=== PATIENT | female | born 1975 | race Caucasian/White ===

== ENCOUNTER 2016-10-16 17:30 | Inpatient (IN) | payer BC ==
[~2016-10-16] VITALS: Ht 167.6 cm; Wt 136.5 kg
[~2016-10-16 17:30] MED LIST: BACTRIM,SEPT1 TABLET PO; Cipro PO; ENDOCET 5-3251 EACH PO; INDOCIN25 MG PO; LIDOCAINE20 MG/1 M5 PO; NAPROSYN500 MG PO; NOHOMEMEDS; NORCO 5/3251 TABLET PO; PEN-VEE K,VEET500 MG PO; PERCOCET 5/31 TABLET PO; PROAIR HFA8.5 GM IH; TESSALON PERLE100 MG PO; TESSALON200 MG PO; VENTOLIN HFA18 GM IH; ZITHROMAX Z-PA250 MG PO
[2016-10-16 18:02] LABS: ADD MIUA? YES; BILIRUBIN NEGATIVE; BLOOD SMALL; COLOR AMBER ((YELLOW)); GLUCOSE (STRIP) NEGATIVE; KETONES NEGATIVE; LEUKOCYTES MODERATE; NITRITE NEGATIVE; PROTEIN (STRIP) 100; SPECIFIC GRAVITY 1.024 (1.000-1.030); UROBILINOGEN 0.2 MG/DL (0.2-1.0)
[2016-10-16 18:11] LABS: HEMATOCRIT 36.2 % (36.0-46.0); MCH 26.3 PG (29.0-34.0); MCHC 31.8 G/DL (30.0-36.0); MCV 82.6 FL (83-99); MEAN PLAT.VOLUME 8.4 uM^3 (9.5-12.4); PLATELET COUNT 404 K/uL (156-360); RBC DIS.WIDTH-SD 42.1 % (39-53); RED BLOOD COUNT 4.38 M/uL (3.80-5.20); WHITE BLOOD COUNT 6.9 K/uL (4.1-10.2)
[2016-10-16 18:21] LABS: CHLORIDE 105 mEq/L (99-109); SODIUM 139 mEq/L (136-147)
[2016-10-16 18:22] LABS: UCUL ADDED? YES; WHITE BLOOD CELLS TNTC /HPF (0-5)
[2016-10-16 18:23] LABS: GLUCOSE 116 mg/dL (70-99)
[2016-10-16 18:24] LABS: ANION GAP 8 MEQ/L (2-14)
[2016-10-16 18:27] LABS: GFR ESTIMATE (CALCULATED) > 59 mL/min/
[2016-10-16 18:28] LABS: UREA NITROGEN (BUN) 11 mg/dL (9-23)
[2016-10-16 18:35] LABS: QUANTITATIVE HCG < 4.0 MIU/ML
[2016-10-16 18:43] LABS: EOSINOPHIL (%) 3.5 % (0-5); EOSINOPHIL COUNT 0.2 K/uL (0-0.3); IMMATURE GRANULOCYTE (%) 0.3 % (0.0-0.7); INSTRUMENT ABS NEUTROPHIL CT 2.8 K/uL; LYMPHOCYTE COUNT 3.1 K/uL (1.0-2.8); MONOCYTE (%) 9.4 % (3-12); MONOCYTE COUNT 0.6 K/uL (0-0.8); NEUTROPHIL (%) 40.5 % (45-76); NEUTROPHIL COUNT 2.8 K/uL (1.8-6.4)
[2016-10-16 18:48] LABS: TOTAL BILIRUBIN 0.3 mg/dL (0.0-1.0)
[2016-10-16 18:49] LABS: ALKALINE PHOSPHATASE 80 IU/L (3-129)
[2016-10-16 18:52] LABS: DIRECT BILIRUBIN 0.1 mg/dL (0.0-0.3)
[2016-10-16 18:53] LABS: LIPASE 27 U/L (1.0-51.0)
[2016-10-16 22:47] VITALS: BP 125/78
[2016-10-17 03:37] VITALS: BP 113/67
[2016-10-17 05:49] LABS: EOSINOPHIL (%) 3.5 % (0-5); EOSINOPHIL COUNT 0.2 K/uL (0-0.3); HEMATOCRIT 32.5 % (36.0-46.0); IMMATURE GRANULOCYTE (%) 0.3 % (0.0-0.7); INSTRUMENT ABS NEUTROPHIL CT 3.3 K/uL; LYMPHOCYTE COUNT 2.4 K/uL (1.0-2.8); MCH 26.4 PG (29.0-34.0); MCHC 31.7 G/DL (30.0-36.0); MCV 83.3 FL (83-99); MEAN PLAT.VOLUME 8.6 uM^3 (9.5-12.4); MONOCYTE (%) 9.7 % (3-12); MONOCYTE COUNT 0.6 K/uL (0-0.8); NEUTROPHIL (%) 49.2 % (45-76); NEUTROPHIL COUNT 3.3 K/uL (1.8-6.4); PLATELET COUNT 345 K/uL (156-360); RBC DIS.WIDTH-CV 14.1 % (11.8-14.6); RBC DIS.WIDTH-SD 42.5 % (39-53); WHITE BLOOD COUNT 6.6 K/uL (4.1-10.2)
[2016-10-17 06:13] LABS: ANION GAP 6 MEQ/L (2-14); CHLORIDE 107 MEQ/L (99-109); GFR ESTIMATE (CALCULATED) > 59 mL/min/; GLUCOSE 115 mg/dL (70-99); POTASSIUM 4.1 MEQ/L (3.7-5.4); SAMPLE HEMOLYSIS CHECK 0; SAMPLE ICTERIC CHECK 0; SAMPLE LIPEMIA CHECK 0; SODIUM 138 MEQ/L (136-147); UREA NITROGEN (BUN) 11 mg/dL (9-23)
[2016-10-17 07:05] VITALS: BP 101/59
[2016-10-17 11:59] VITALS: BP 109/58
[2016-10-17 15:10] VITALS: BP 106/59
[2016-10-17 19:49] VITALS: BP 124/63
[2016-10-17 23:54] VITALS: BP 114/55
[2016-10-18 06:26] LABS: EOSINOPHIL (%) 4.4 % (0-5); EOSINOPHIL COUNT 0.3 K/uL (0-0.3); HEMATOCRIT 33.5 % (36.0-46.0); IMMATURE GRANULOCYTE (%) 0.3 % (0.0-0.7); INSTRUMENT ABS NEUTROPHIL CT 3.3 K/uL; LYMPHOCYTE COUNT 2.3 K/uL (1.0-2.8); MCH 26.4 PG (29.0-34.0); MCHC 31.6 G/DL (30.0-36.0); MCV 83.3 FL (83-99); MEAN PLAT.VOLUME 8.6 uM^3 (9.5-12.4); MONOCYTE COUNT 0.6 K/uL (0-0.8); NEUTROPHIL (%) 50.5 % (45-76); NEUTROPHIL COUNT 3.3 K/uL (1.8-6.4); PLATELET COUNT 334 K/uL (156-360); RBC DIS.WIDTH-SD 42.5 % (39-53); RED BLOOD COUNT 4.02 M/uL (3.80-5.20); WHITE BLOOD COUNT 6.6 K/uL (4.1-10.2)
[2016-10-18 06:48] LABS: ALKALINE PHOSPHATASE 60 IU/L (3-129); ANION GAP 5 MEQ/L (2-14); CHLORIDE 108 MEQ/L (99-109); GFR ESTIMATE (CALCULATED) > 59 mL/min/; GLUCOSE 122 mg/dL (70-99); POTASSIUM 4.5 MEQ/L (3.7-5.4); SAMPLE HEMOLYSIS CHECK 0; SAMPLE ICTERIC CHECK 0; SAMPLE LIPEMIA CHECK 0; SODIUM 139 MEQ/L (136-147); TOTAL BILIRUBIN 0.4 MG/DL (0.0-1.0); UREA NITROGEN (BUN) 10 mg/dL (9-23)
[2016-10-18 08:27] VITALS: BP 106/58
[2016-10-18] MEDS ORDERED: KEFLEX500 MG PO (08:58)
== END 2016-10-18 11:53 | disposition home or self-care (01) | DRG 690 ==
LOC: RME 17:30 → EME 17:30 → EDOF 21:31 → ENRESERV 21:34 → 2EAST 22:26
PROVIDERS: Hospitalist; Internal Medicine
DX: N12 Tubulo-interstitial nephritis, not specified as acute or chronic (principal); N20.0 Calculus of kidney; E66.01 Morbid (severe) obesity due to excess calories; Z68.42 Body mass index [BMI] 45.0-49.9, adult; Z72.0 Tobacco use; Z87.442 Personal history of urinary calculi; Z98.51 Tubal ligation status
CPT/HCPCS: 74176; 80048; 80053; 80076; 81003; 83690; 84702; 85025; 85027; 87086; 99281; 99284; 99285; J0696; J2405; J3010; J7030; J7050

== ENCOUNTER 2016-11-18 09:48 | Day surgery (SDC) | payer BC ==
[~2016-11-18] VITALS: Ht 167.6 cm; Wt 134.7 kg
[~2016-11-18 09:48] MED LIST changes: +ALEVE220 MG PO; +KEFLEX500 MG PO
[2016-11-18 10:11] VITALS: BP 134/90
[2016-11-18 15:39] VITALS: BP 121/67
[2016-11-18 16:55] VITALS: BP 116/78
[2016-11-19] MEDS ORDERED: CIPRO500 MG PO (20:52)
[2016-11-19] MEDS ORDERED: PERCOCET 5/31 TABLET PO (20:53)
== END 2016-11-18 17:15 | disposition home or self-care (01) ==
LOC: SDC 09:48
DX: N20.0 Calculus of kidney (principal); N13.6 Pyonephrosis
CPT/HCPCS: 74000; 76000; C1758; C1769; C1876; J0330; J0692; J1100; J1170; J2250; J2405; J2710; J2765; J3010; J7050; S0020

== ENCOUNTER 2016-11-19 19:26 | Inpatient (IN) | payer BC ==
[~2016-11-19] VITALS: Ht 167.6 cm; Wt 127.5 kg
[2016-11-19 20:14] LABS: EOSINOPHIL (%) 0.1 % (0-5); HEMATOCRIT 34.4 % (36.0-46.0); IMMATURE GRANULOCYTE (%) 0.4 % (0.0-0.7); IMMATURE GRANULOCYTE COUNT 0.1 K/uL; INSTRUMENT ABS NEUTROPHIL CT 10.8 K/uL; LYMPHOCYTE COUNT 1.2 K/uL (1.0-2.8); MCH 26.8 PG (29.0-34.0); MCHC 33.1 G/DL (30.0-36.0); MCV 80.9 FL (83-99); MEAN PLAT.VOLUME 8.4 uM^3 (9.5-12.4); MONOCYTE (%) 6.6 % (3-12); MONOCYTE COUNT 0.9 K/uL (0-0.8); NEUTROPHIL (%) 83.2 % (45-76); NEUTROPHIL COUNT 10.8 K/uL (1.8-6.4); PLATELET COUNT 323 K/uL (156-360); RBC DIS.WIDTH-CV 13.9 % (11.8-14.6); RBC DIS.WIDTH-SD 40.3 % (39-53); RED BLOOD COUNT 4.25 M/uL (3.80-5.20)
[2016-11-19 20:22] LABS: CHLORIDE 96 mEq/L (99-109)
[2016-11-19 20:24] LABS: GLUCOSE 177 mg/dL (70-99)
[2016-11-19 20:25] LABS: ANION GAP 11 MEQ/L (2-14); POTASSIUM 3.6 mEq/L (3.7-5.4); SODIUM 131 mEq/L (136-147)
[2016-11-19 20:28] LABS: GFR ESTIMATE (CALCULATED) > 59 mL/min/
[2016-11-19 20:29] LABS: UREA NITROGEN (BUN) 8 mg/dL (9-23)
[2016-11-19] MEDS ORDERED: CIPRO500 MG PO (20:52)
[2016-11-19] MEDS ORDERED: PERCOCET 5/31 TABLET PO (20:53)
[2016-11-19 22:24] VITALS: BP 124/71
[2016-11-19 22:30] VITALS: BP 124/71
[2016-11-20 02:44] LABS: ADD MIUA? YES; BILIRUBIN NEGATIVE; BLOOD LARGE; COLOR YELLOW ((YELLOW)); GLUCOSE (STRIP) NEGATIVE; KETONES NEGATIVE; LEUKOCYTES LARGE; NITRITE NEGATIVE; PROTEIN (STRIP) NEGATIVE; UROBILINOGEN 0.2 MG/DL (0.2-1.0)
[2016-11-20 02:50] LABS: BACTERIA RARE /HPF; EPITHELIAL CELLS 1+ /HPF; MUCUS TRACE /LPF; UCUL ADDED? YES; WHITE BLOOD CELLS TNTC /HPF (0-5)
[2016-11-20 06:58] LABS: HEMATOCRIT 33.2 % (36.0-46.0); MCH 27.7 PG (29.0-34.0); MCHC 33.1 G/DL (30.0-36.0); MCV 83.6 FL (83-99); MEAN PLAT.VOLUME 8.9 uM^3 (9.5-12.4); PLATELET COUNT 340 K/uL (156-360); RBC DIS.WIDTH-CV 14.3 % (11.8-14.6); RBC DIS.WIDTH-SD 43.7 % (39-53); RED BLOOD COUNT 3.97 M/uL (3.80-5.20); WHITE BLOOD COUNT 14.2 K/uL (4.1-10.2)
[2016-11-20 07:18] LABS: Estimated Average Glucose 134 mg/dL (70-123); HEMOGLOBIN A1c (GLYCOHEMOGLOB) 6.3 % HGB (Below 5.7)
[2016-11-20 07:25] VITALS: BP 112/63
[2016-11-20 08:05] LABS: FERRITIN 171 NG/ML (10-291)
[2016-11-20 08:19] LABS: ANION GAP 11 MEQ/L (2-14); CHLORIDE 98 MEQ/L (99-109); GFR ESTIMATE (CALCULATED) > 59 mL/min/; GLUCOSE 153 mg/dL (70-99); IRON 9 MCG/DL (35-150); POTASSIUM 3.8 MEQ/L (3.7-5.4); SAMPLE HEMOLYSIS CHECK 0; SAMPLE ICTERIC CHECK 0; SAMPLE LIPEMIA CHECK 0; SODIUM 134 MEQ/L (136-147); UREA NITROGEN (BUN) 7 mg/dL (9-23)
[2016-11-20 15:40] VITALS: BP 125/76
[2016-11-20 23:55] VITALS: BP 148/66
[2016-11-21 07:14] VITALS: BP 118/69
[2016-11-21 10:16] LABS: HEMATOCRIT 32.9 % (36.0-46.0); MCH 27.4 PG (29.0-34.0); MCHC 32.8 G/DL (30.0-36.0); MCV 83.5 FL (83-99); MEAN PLAT.VOLUME 8.7 uM^3 (9.5-12.4); PLATELET COUNT 351 K/uL (156-360); RBC DIS.WIDTH-CV 14.4 % (11.8-14.6); RBC DIS.WIDTH-SD 44.2 % (39-53); RED BLOOD COUNT 3.94 M/uL (3.80-5.20); WHITE BLOOD COUNT 15.4 K/uL (4.1-10.2)
[2016-11-21 10:38] LABS: ANION GAP 10 MEQ/L (2-14); CHLORIDE 100 MEQ/L (99-109); GFR ESTIMATE (CALCULATED) > 59 mL/min/; GLUCOSE 194 mg/dL (70-99); POTASSIUM 3.6 MEQ/L (3.7-5.4); SAMPLE HEMOLYSIS CHECK 0; SAMPLE ICTERIC CHECK 0; SAMPLE LIPEMIA CHECK 0; SODIUM 134 MEQ/L (136-147); UREA NITROGEN (BUN) 7 mg/dL (9-23)
[2016-11-21 15:26] VITALS: BP 126/70
[2016-11-22] VITALS: BP 116/62
[2016-11-22 07:27] VITALS: BP 113/66
[2016-11-22 09:18] LABS: HEMATOCRIT 33.2 % (36.0-46.0); MCH 27.3 PG (29.0-34.0); MCHC 32.2 G/DL (30.0-36.0); MCV 84.7 FL (83-99); MEAN PLAT.VOLUME 9.2 uM^3 (9.5-12.4); PLATELET COUNT 415 K/uL (156-360); RBC DIS.WIDTH-CV 14.6 % (11.8-14.6); RBC DIS.WIDTH-SD 45.1 % (39-53); RED BLOOD COUNT 3.92 M/uL (3.80-5.20); WHITE BLOOD COUNT 14.1 K/uL (4.1-10.2)
[2016-11-22 09:34] LABS: ANION GAP 11 MEQ/L (2-14); CHLORIDE 100 MEQ/L (99-109); GFR ESTIMATE (CALCULATED) > 59 mL/min/; GLUCOSE 149 mg/dL (70-99); POTASSIUM 3.3 MEQ/L (3.7-5.4); SODIUM 133 MEQ/L (136-147); UREA NITROGEN (BUN) 7 mg/dL (9-23)
[2016-11-22 15:08] VITALS: BP 123/63
[2016-11-22 17:14] LABS: INTER. NORMALIZED RATIO 1.4; PROTHROMBIN TIME 15.4 SEC (10.2-12.9)
[2016-11-22 17:16] LABS: PTT 29.5 SEC (25-37)
[2016-11-22 20:30] VITALS: BP 125/71
[2016-11-23 00:23] VITALS: BP 109/58
[2016-11-23 00:31] LABS: POINT-OF-CARE METER ID UU14174225
[2016-11-23 05:35] LABS: POINT-OF-CARE METER ID UU13113717
[2016-11-23 08:28] LABS: POINT-OF-CARE METER ID UU14174225
[2016-11-23 08:50] VITALS: BP 120/60
[2016-11-23 09:08] LABS: HEMATOCRIT 28.6 % (36.0-46.0); MCH 26.7 PG (29.0-34.0); MCHC 32.2 G/DL (30.0-36.0); MCV 82.9 FL (83-99); MEAN PLAT.VOLUME 9.3 uM^3 (9.5-12.4); PLATELET COUNT 390 K/uL (156-360); RBC DIS.WIDTH-CV 14.6 % (11.8-14.6); RBC DIS.WIDTH-SD 44.2 % (39-53); RED BLOOD COUNT 3.45 M/uL (3.80-5.20); WHITE BLOOD COUNT 12.4 K/uL (4.1-10.2)
[2016-11-23 09:53] LABS: ANION GAP 11 MEQ/L (2-14); CHLORIDE 103 MEQ/L (99-109); GFR ESTIMATE (CALCULATED) > 59 mL/min/; GLUCOSE 132 mg/dL (70-99); POTASSIUM 3.5 MEQ/L (3.7-5.4); SAMPLE HEMOLYSIS CHECK 0; SAMPLE ICTERIC CHECK 0; SAMPLE LIPEMIA CHECK 0; SODIUM 134 MEQ/L (136-147); UREA NITROGEN (BUN) 8 mg/dL (9-23)
[2016-11-23 12:10] LABS: POINT-OF-CARE METER ID UU13113717
[2016-11-23 15:10] VITALS: BP 116/57
[2016-11-23 15:26] LABS: POINT-OF-CARE METER ID UU14174225
[2016-11-23 16:32] VITALS: BP 131/69
[2016-11-23 21:06] VITALS: BP 123/65
[2016-11-23 21:50] LABS: POINT-OF-CARE METER ID UU13113717
[2016-11-23 23:37] LABS: TROP-I INTERPRETATION NEGATIVE; TROPONIN-I 0.01 ng/mL (0.0-0.30)
[2016-11-23 23:53] VITALS: BP 114/62
[2016-11-24 05:59] LABS: RED BLOOD COUNT 3.54 M/uL (3.80-5.20); WHITE BLOOD COUNT 15.9 K/uL (4.1-10.2)
[2016-11-24 06:00] LABS: HEMATOCRIT 29.4 % (36.0-46.0); MCH 26.3 PG (29.0-34.0); MCHC 31.6 G/DL (30.0-36.0); MCV 83.1 FL (83-99); MEAN PLAT.VOLUME 8.8 uM^3 (9.5-12.4); PLATELET COUNT 399 K/uL (156-360); RBC DIS.WIDTH-CV 14.7 % (11.8-14.6); RBC DIS.WIDTH-SD 45.2 % (39-53)
[2016-11-24 06:28] LABS: ANION GAP 9 MEQ/L (2-14); CHLORIDE 103 MEQ/L (99-109); GFR ESTIMATE (CALCULATED) > 59 mL/min/; GLUCOSE 138 mg/dL (70-99); POTASSIUM 3.7 MEQ/L (3.7-5.4); SAMPLE HEMOLYSIS CHECK 0; SAMPLE ICTERIC CHECK 0; SAMPLE LIPEMIA CHECK 0; SODIUM 135 MEQ/L (136-147); UREA NITROGEN (BUN) 8 mg/dL (9-23)
[2016-11-24 07:23] VITALS: BP 132/73
[2016-11-24 07:40] LABS: POINT-OF-CARE METER ID UU14174225
[2016-11-24 11:35] LABS: POINT-OF-CARE METER ID UU14174225
[2016-11-24 15:07] VITALS: BP 117/69
[2016-11-24 16:38] LABS: POINT-OF-CARE METER ID UU14174225
[2016-11-24 22:15] LABS: POINT-OF-CARE METER ID UU14174225
[2016-11-25 00:24] VITALS: BP 119/57
[2016-11-25 08:16] VITALS: BP 121/70
[2016-11-25 12:10] LABS: POINT-OF-CARE METER ID UU13113717
[2016-11-25 15:23] VITALS: BP 137/70
[2016-11-25 18:06] LABS: POINT-OF-CARE METER ID UU13113717
[2016-11-25 21:18] LABS: POINT-OF-CARE METER ID UU13113717
[2016-11-26 01:15] VITALS: BP 142/83
[2016-11-26 08:00] VITALS: BP 131/69
[2016-11-26 16:21] VITALS: BP 130/71
[2016-11-26 22:14] LABS: POINT-OF-CARE METER ID UU14188625
[2016-11-26 23:44] VITALS: BP 126/61
[2016-11-27 03:40] VITALS: BP 134/76
[2016-11-27 03:56] LABS: POINT-OF-CARE METER ID UU14188625
[2016-11-27 08:51] VITALS: BP 105/59
[2016-11-27 12:44] LABS: HEMATOCRIT 30.3 % (36.0-46.0); MCH 26.1 PG (29.0-34.0); MCV 84.2 FL (83-99); MEAN PLAT.VOLUME 8.8 uM^3 (9.5-12.4); PLATELET COUNT 516 K/uL (156-360); RBC DIS.WIDTH-SD 46.3 % (39-53); WHITE BLOOD COUNT 16.7 K/uL (4.1-10.2)
[2016-11-27 13:11] LABS: ANION GAP 10 MEQ/L (2-14); CHLORIDE 101 MEQ/L (99-109); GFR ESTIMATE (CALCULATED) > 59 mL/min/; GLUCOSE 123 mg/dL (70-99); POTASSIUM 3.8 MEQ/L (3.7-5.4); SAMPLE HEMOLYSIS CHECK 0; SAMPLE ICTERIC CHECK 0; SAMPLE LIPEMIA CHECK 0; SODIUM 137 MEQ/L (136-147); UREA NITROGEN (BUN) 6 mg/dL (9-23)
[2016-11-27 16:07] VITALS: BP 146/97
[2016-11-27 23:39] VITALS: BP 118/67
[2016-11-28 07:30] LABS: POINT-OF-CARE METER ID UU14174225
[2016-11-28 07:52] VITALS: BP 126/72
[2016-11-28 09:09] LABS: HEMATOCRIT 27.4 % (36.0-46.0); MCH 25.9 PG (29.0-34.0); MCV 83.5 FL (83-99); MEAN PLAT.VOLUME 8.8 uM^3 (9.5-12.4); PLATELET COUNT 486 K/uL (156-360); RBC DIS.WIDTH-CV 14.8 % (11.8-14.6); RBC DIS.WIDTH-SD 45.9 % (39-53); RED BLOOD COUNT 3.28 M/uL (3.80-5.20); WHITE BLOOD COUNT 16.4 K/uL (4.1-10.2)
[2016-11-28 12:15] LABS: POINT-OF-CARE METER ID UU14174225
[2016-11-28 15:31] VITALS: BP 138/74
[2016-11-28 23:51] VITALS: BP 137/74
[2016-11-29 05:46] LABS: HEMATOCRIT 27.4 % (36.0-46.0); MCH 26.8 PG (29.0-34.0); MCHC 31.8 G/DL (30.0-36.0); MCV 84.3 FL (83-99); MEAN PLAT.VOLUME 8.8 uM^3 (9.5-12.4); NRBC (%) 0.1 /100 WBC (0-0); PLATELET COUNT 514 K/uL (156-360); RBC DIS.WIDTH-CV 14.7 % (11.8-14.6); RBC DIS.WIDTH-SD 45.6 % (39-53); RED BLOOD COUNT 3.25 M/uL (3.80-5.20); WHITE BLOOD COUNT 16.9 K/uL (4.1-10.2)
[2016-11-29 06:10] LABS: ANION GAP 7 MEQ/L (2-14); CHLORIDE 100 MEQ/L (99-109); GFR ESTIMATE (CALCULATED) > 59 mL/min/; GLUCOSE 152 mg/dL (70-99); POTASSIUM 3.6 MEQ/L (3.7-5.4); SAMPLE HEMOLYSIS CHECK 0; SAMPLE ICTERIC CHECK 0; SAMPLE LIPEMIA CHECK 0; SODIUM 136 MEQ/L (136-147); UREA NITROGEN (BUN) 7 mg/dL (9-23)
[2016-11-29 07:54] VITALS: BP 139/67
[2016-11-29 11:08] LABS: TROP-I INTERPRETATION NEGATIVE; TROPONIN-I < 0.01 ng/mL (0.0-0.30)
[2016-11-29 12:48] LABS: POINT-OF-CARE METER ID UU14188625
[2016-11-29 16:24] VITALS: BP 129/76
[2016-11-29 18:10] LABS: POINT-OF-CARE METER ID UU14174225
[2016-11-30] VITALS: BP 115/67
[2016-11-30 00:24] LABS: POINT-OF-CARE METER ID UU14188625
[2016-11-30 08:31] VITALS: BP 125/61
[2016-11-30 08:34] LABS: HEMATOCRIT 28.2 % (36.0-46.0); MCH 25.7 PG (29.0-34.0); MCHC 30.5 G/DL (30.0-36.0); MCV 84.4 FL (83-99); MEAN PLAT.VOLUME 8.6 uM^3 (9.5-12.4); PLATELET COUNT 523 K/uL (156-360); RBC DIS.WIDTH-CV 14.6 % (11.8-14.6); RBC DIS.WIDTH-SD 45.3 % (39-53); RED BLOOD COUNT 3.34 M/uL (3.80-5.20); WHITE BLOOD COUNT 16.5 K/uL (4.1-10.2)
[2016-11-30 09:29] LABS: ANION GAP 7 MEQ/L (2-14); CHLORIDE 99 MEQ/L (99-109); GFR ESTIMATE (CALCULATED) > 59 mL/min/; GLUCOSE 164 mg/dL (70-99); POTASSIUM 4.2 MEQ/L (3.7-5.4); SAMPLE HEMOLYSIS CHECK 0; SAMPLE ICTERIC CHECK 0; SAMPLE LIPEMIA CHECK 0; SODIUM 135 MEQ/L (136-147); UREA NITROGEN (BUN) 8 mg/dL (9-23)
[2016-11-30 12:13] LABS: POINT-OF-CARE METER ID UU14174225
[2016-11-30 15:43] VITALS: BP 125/68
[2016-11-30 17:11] LABS: POINT-OF-CARE METER ID UU14174225
[2016-11-30 21:31] LABS: POINT-OF-CARE METER ID UU14188625; POINT-OF-CARE USER ID BHSKTD
[2016-12-01 03:51] VITALS: BP 129/68
[2016-12-01 06:10] LABS: HEMATOCRIT 28.1 % (36.0-46.0); MCH 25.7 PG (29.0-34.0); MCHC 30.6 G/DL (30.0-36.0); MCV 84.1 FL (83-99); MEAN PLAT.VOLUME 8.5 uM^3 (9.5-12.4); PLATELET COUNT 566 K/uL (156-360); RBC DIS.WIDTH-CV 14.6 % (11.8-14.6); RBC DIS.WIDTH-SD 44.8 % (39-53); RED BLOOD COUNT 3.34 M/uL (3.80-5.20); WHITE BLOOD COUNT 15.9 K/uL (4.1-10.2)
[2016-12-01 07:59] VITALS: BP 118/76
[2016-12-01 11:54] VITALS: BP 140/77
[2016-12-01 15:38] VITALS: BP 118/63
[2016-12-01 23:34] VITALS: BP 139/87
[2016-12-02 07:59] VITALS: BP 127/72
[2016-12-02 09:57] LABS: HEMATOCRIT 30.8 % (36.0-46.0); MCH 25.6 PG (29.0-34.0); MCHC 30.5 G/DL (30.0-36.0); MCV 83.9 FL (83-99); NRBC (%) 0.1 /100 WBC (0-0); RBC DIS.WIDTH-CV 14.6 % (11.8-14.6); RBC DIS.WIDTH-SD 44.6 % (39-53); RED BLOOD COUNT 3.67 M/uL (3.80-5.20); WHITE BLOOD COUNT 16.2 K/uL (4.1-10.2)
[2016-12-02 10:07] LABS: ANION GAP 12 MEQ/L (2-14); CHLORIDE 96 MEQ/L (99-109); POTASSIUM 4.8 MEQ/L (3.7-5.4); SAMPLE HEMOLYSIS CHECK 0; SAMPLE ICTERIC CHECK 0; SAMPLE LIPEMIA CHECK 0; SODIUM 130 MEQ/L (136-147); TOTAL BILIRUBIN 0.4 MG/DL (0.0-1.0)
[2016-12-02 10:13] LABS: ALKALINE PHOSPHATASE 149 IU/L (3-129); GFR ESTIMATE (CALCULATED) > 59 mL/min/; GLUCOSE 170 mg/dL (70-99); UREA NITROGEN (BUN) 10 mg/dL (9-23)
[2016-12-02 10:18] LABS: MEAN PLAT.VOLUME 8.8 uM^3 (9.5-12.4); PLAT.SUFFICIENCY INCREASED
[2016-12-02 10:19] LABS: PLATELET COUNT 1124 K/uL (156-360)
[2016-12-02 12:06] LABS: POINT-OF-CARE METER ID UU14174225
[2016-12-02 12:09] LABS: HEMATOCRIT 31.4 % (36.0-46.0); MCH 26.9 PG (29.0-34.0); MCHC 32.2 G/DL (30.0-36.0); MCV 83.7 FL (83-99); RBC DIS.WIDTH-CV 14.6 % (11.8-14.6); RBC DIS.WIDTH-SD 44.1 % (39-53); RED BLOOD COUNT 3.75 M/uL (3.80-5.20); WHITE BLOOD COUNT 15.6 K/uL (4.1-10.2)
[2016-12-02 12:29] LABS: ANION GAP 7 MEQ/L (2-14); CHLORIDE 95 MEQ/L (99-109); GFR ESTIMATE (CALCULATED) > 59 mL/min/; POTASSIUM 4.9 MEQ/L (3.7-5.4); SAMPLE HEMOLYSIS CHECK 0; SAMPLE ICTERIC CHECK 0; SAMPLE LIPEMIA CHECK 0; SODIUM 131 MEQ/L (136-147); UREA NITROGEN (BUN) 11 mg/dL (9-23)
[2016-12-02 12:31] LABS: MEAN PLAT.VOLUME 8.8 uM^3 (9.5-12.4); PLAT.SUFFICIENCY INCREASED; PLATELET COUNT 706 K/uL (156-360)
[2016-12-02 12:35] LABS: GLUCOSE 118 mg/dL (70-99)
[2016-12-02 15:22] VITALS: BP 142/85
[2016-12-02 17:30] LABS: POINT-OF-CARE METER ID UU14188625
[2016-12-02 21:27] LABS: POINT-OF-CARE METER ID UU14174225
[2016-12-03] VITALS: BP 130/65
[2016-12-03 05:57] LABS: HEMATOCRIT 29.6 % (36.0-46.0); MCH 25.5 PG (29.0-34.0); MCHC 30.7 G/DL (30.0-36.0); MCV 82.9 FL (83-99); MEAN PLAT.VOLUME 8.6 uM^3 (9.5-12.4); PLATELET COUNT 637 K/uL (156-360); RBC DIS.WIDTH-CV 14.3 % (11.8-14.6); RBC DIS.WIDTH-SD 43.1 % (39-53); RED BLOOD COUNT 3.57 M/uL (3.80-5.20); WHITE BLOOD COUNT 13.4 K/uL (4.1-10.2)
[2016-12-03 06:22] LABS: ANION GAP 9 MEQ/L (2-14); CHLORIDE 98 MEQ/L (99-109); GFR ESTIMATE (CALCULATED) > 59 mL/min/; GLUCOSE 144 mg/dL (70-99); POTASSIUM 4.5 MEQ/L (3.7-5.4); SAMPLE HEMOLYSIS CHECK 0; SAMPLE ICTERIC CHECK 0; SAMPLE LIPEMIA CHECK 0; SODIUM 133 MEQ/L (136-147); UREA NITROGEN (BUN) 12 mg/dL (9-23)
[2016-12-03 07:55] VITALS: BP 117/70
[2016-12-03 08:01] LABS: POINT-OF-CARE METER ID UU14188625
[2016-12-03 14:07] LABS: POINT-OF-CARE METER ID UU13113675
[2016-12-03 15:34] LABS: HEMATOCRIT 27.2 % (36.0-46.0); MCH 25.9 PG (29.0-34.0); MCHC 30.9 G/DL (30.0-36.0); MEAN PLAT.VOLUME 8.7 uM^3 (9.5-12.4); PLATELET COUNT 634 K/uL (156-360); RBC DIS.WIDTH-CV 14.3 % (11.8-14.6); RED BLOOD COUNT 3.24 M/uL (3.80-5.20); WHITE BLOOD COUNT 26.8 K/uL (4.1-10.2)
[2016-12-03 15:46] LABS: ANION GAP 7 MEQ/L (2-14); CHLORIDE 100 MEQ/L (99-109); POTASSIUM 4.6 MEQ/L (3.7-5.4); SAMPLE HEMOLYSIS CHECK 0; SAMPLE ICTERIC CHECK 0; SAMPLE LIPEMIA CHECK 0; SODIUM 131 MEQ/L (136-147)
[2016-12-03 15:53] LABS: GFR ESTIMATE (CALCULATED) 58 mL/min/; UREA NITROGEN (BUN) 14 mg/dL (9-23)
[2016-12-03 15:57] LABS: GLUCOSE 218 mg/dL (70-99)
[2016-12-03 16:35] VITALS: BP 115/65
[2016-12-03 20:32] VITALS: BP 113/58
[2016-12-03 22:49] LABS: POINT-OF-CARE METER ID UU13113698
[2016-12-04 00:53] VITALS: BP 122/74
[2016-12-04 04:15] VITALS: BP 114/54
[2016-12-04 07:15] VITALS: BP 118/63
[2016-12-04 07:56] LABS: POINT-OF-CARE METER ID UU13113781
[2016-12-04 08:29] LABS: HEMATOCRIT 24.2 % (36.0-46.0); MCH 27.2 PG (29.0-34.0); MCHC 32.2 G/DL (30.0-36.0); MCV 84.3 FL (83-99); MEAN PLAT.VOLUME 8.8 uM^3 (9.5-12.4); PLATELET COUNT 688 K/uL (156-360); RBC DIS.WIDTH-CV 14.3 % (11.8-14.6); RBC DIS.WIDTH-SD 44.1 % (39-53); RED BLOOD COUNT 2.87 M/uL (3.80-5.20); WHITE BLOOD COUNT 15.9 K/uL (4.1-10.2)
[2016-12-04 08:57] LABS: ANION GAP 12 MEQ/L (2-14); CHLORIDE 99 MEQ/L (99-109); GFR ESTIMATE (CALCULATED) > 59 mL/min/; POTASSIUM 4.6 MEQ/L (3.7-5.4); SAMPLE HEMOLYSIS CHECK 0; SAMPLE ICTERIC CHECK 0; SAMPLE LIPEMIA CHECK 0; SODIUM 134 MEQ/L (136-147); UREA NITROGEN (BUN) 12 mg/dL (9-23)
[2016-12-04 08:58] LABS: GLUCOSE 120 mg/dL (70-99)
[2016-12-04 11:25] VITALS: BP 116/72
[2016-12-04 12:08] LABS: POINT-OF-CARE METER ID UU13113698
[2016-12-04 14:43] LABS: HEMATOCRIT 24.3 % (36.0-46.0); MCH 26.1 PG (29.0-34.0); MCHC 31.3 G/DL (30.0-36.0); MCV 83.5 FL (83-99); MEAN PLAT.VOLUME 8.6 uM^3 (9.5-12.4); PLATELET COUNT 559 K/uL (156-360); RBC DIS.WIDTH-CV 14.4 % (11.8-14.6); RBC DIS.WIDTH-SD 43.7 % (39-53); RED BLOOD COUNT 2.91 M/uL (3.80-5.20); WHITE BLOOD COUNT 14.9 K/uL (4.1-10.2)
[2016-12-04 16:26] LABS: POINT-OF-CARE METER ID UU13113698
[2016-12-04 18:30] VITALS: BP 111/58
[2016-12-04 20:30] VITALS: BP 110/58
[2016-12-04 21:42] LABS: POINT-OF-CARE METER ID UU13113698
[2016-12-05] VITALS (7 sets, daily range): BP systolic 99–120; BP diastolic 51–74
[2016-12-05 06:50] LABS: HEMATOCRIT 23.2 % (36.0-46.0); MCH 25.5 PG (29.0-34.0); MCHC 30.6 G/DL (30.0-36.0); MCV 83.5 FL (83-99); MEAN PLAT.VOLUME 8.7 uM^3 (9.5-12.4); PLATELET COUNT 558 K/uL (156-360); RBC DIS.WIDTH-CV 14.2 % (11.8-14.6); RBC DIS.WIDTH-SD 43.8 % (39-53); RED BLOOD COUNT 2.78 M/uL (3.80-5.20)
[2016-12-05 07:12] LABS: ANION GAP 10 MEQ/L (2-14); CHLORIDE 97 MEQ/L (99-109); GFR ESTIMATE (CALCULATED) > 59 mL/min/; GLUCOSE 105 mg/dL (70-99); POTASSIUM 4.3 MEQ/L (3.7-5.4); SAMPLE HEMOLYSIS CHECK 0; SAMPLE ICTERIC CHECK 0; SAMPLE LIPEMIA CHECK 0; SODIUM 132 MEQ/L (136-147); UREA NITROGEN (BUN) 10 mg/dL (9-23)
[2016-12-05 07:36] LABS: POINT-OF-CARE METER ID UU13113698
[2016-12-05 12:27] LABS: POINT-OF-CARE METER ID UU14174216; POINT-OF-CARE USER ID NUTSLF44
[2016-12-05 16:40] LABS: POINT-OF-CARE METER ID UU13113698
[2016-12-05 22:33] LABS: POINT-OF-CARE METER ID UU14174216
[2016-12-06] VITALS (12 sets, daily range): BP systolic 102–138; BP diastolic 54–72
[2016-12-06 06:36] LABS: HEMATOCRIT 22.5 % (36.0-46.0); MCH 25.6 PG (29.0-34.0); MCHC 30.7 G/DL (30.0-36.0); MCV 83.3 FL (83-99); PLATELET COUNT 565 K/uL (156-360); RBC DIS.WIDTH-CV 14.1 % (11.8-14.6); RBC DIS.WIDTH-SD 42.6 % (39-53); WHITE BLOOD COUNT 10.4 K/uL (4.1-10.2)
[2016-12-06 09:27] LABS: ANION GAP 6 MEQ/L (2-14); CHLORIDE 101 MEQ/L (99-109); GFR ESTIMATE (CALCULATED) > 59 mL/min/; GLUCOSE 133 mg/dL (70-99); POTASSIUM 4.1 MEQ/L (3.7-5.4); SAMPLE HEMOLYSIS CHECK 0; SAMPLE ICTERIC CHECK 0; SAMPLE LIPEMIA CHECK 0; SODIUM 135 MEQ/L (136-147); UREA NITROGEN (BUN) 9 mg/dL (9-23)
[2016-12-06 16:17] LABS: POINT-OF-CARE METER ID UU13113698
[2016-12-06 21:10] LABS: POINT-OF-CARE METER ID UU13113698
[2016-12-07 06:25] VITALS: BP 132/80
[2016-12-07 07:07] LABS: HEMATOCRIT 26.4 % (36.0-46.0); MCH 25.9 PG (29.0-34.0); MCHC 31.4 G/DL (30.0-36.0); MCV 82.5 FL (83-99); MEAN PLAT.VOLUME 8.4 uM^3 (9.5-12.4); PLATELET COUNT 564 K/uL (156-360); RBC DIS.WIDTH-CV 14.4 % (11.8-14.6); WHITE BLOOD COUNT 8.3 K/uL (4.1-10.2)
[2016-12-07 07:45] VITALS: BP 139/70
[2016-12-07 08:15] LABS: POINT-OF-CARE METER ID UU13113698; POINT-OF-CARE USER ID ENVKC36
[2016-12-07 11:33] LABS: POINT-OF-CARE METER ID UU13113781
[2016-12-07 12:57] VITALS: BP 130/73
[2016-12-07 15:31] VITALS: BP 164/89
[2016-12-07 16:37] LABS: POINT-OF-CARE METER ID UU14208750
[2016-12-07 21:30] LABS: POINT-OF-CARE METER ID UU14208750
[2016-12-08 00:18] VITALS: BP 130/77
[2016-12-08 06:22] LABS: POINT-OF-CARE METER ID UU14208750
[2016-12-08 08:17] VITALS: BP 124/70
[2016-12-08 12:00] LABS: POINT-OF-CARE METER ID UU14162508
[2016-12-08 16:31] LABS: POINT-OF-CARE METER ID UU14162508
[2016-12-08 16:51] VITALS: BP 133/67
[2016-12-08 23:52] VITALS: BP 126/71
[2016-12-09 07:49] VITALS: BP 133/78
[2016-12-09 11:18] VITALS: BP 139/72
[2016-12-09 19:18] VITALS: BP 129/78
[2016-12-09 23:28] VITALS: BP 127/73
[2016-12-10 07:00] LABS: HEMATOCRIT 29.2 % (36.0-46.0); MCHC 32.2 G/DL (30.0-36.0); MCV 83.9 FL (83-99); MEAN PLAT.VOLUME 8.6 uM^3 (9.5-12.4); PLATELET COUNT 508 K/uL (156-360); RBC DIS.WIDTH-CV 14.7 % (11.8-14.6); RBC DIS.WIDTH-SD 43.8 % (39-53); RED BLOOD COUNT 3.48 M/uL (3.80-5.20); WHITE BLOOD COUNT 7.4 K/uL (4.1-10.2)
[2016-12-10 07:10] VITALS: BP 133/76
[2016-12-10 07:30] LABS: ANION GAP 8 MEQ/L (2-14); CHLORIDE 100 MEQ/L (99-109); GFR ESTIMATE (CALCULATED) > 59 mL/min/; GLUCOSE 110 mg/dL (70-99); POTASSIUM 4.2 MEQ/L (3.7-5.4); SAMPLE HEMOLYSIS CHECK 0; SAMPLE ICTERIC CHECK 0; SAMPLE LIPEMIA CHECK 0; SODIUM 137 MEQ/L (136-147); UREA NITROGEN (BUN) 7 mg/dL (9-23)
[2016-12-10] MEDS ORDERED: PERCOCET 5/31 TABLET PO (11:44)
[2016-12-10] MEDS ORDERED: AUGMENTIN875 MG PO (11:44)
== END 2016-12-10 13:03 | disposition home health service (06) | DRG 853 ==
LOC: EME 19:26 → 5SOUTH 21:30 → EDOF 21:30 → ENRESERV 21:30 → 2EAST 21:30 → ENRESERV 21:44 → 5SOUTH 22:16 → ENRESERV 12-03 14:37 → 5SOUTH 12-03 14:41 → ENRESERV 12-03 14:51 → 5SOUTH 12-03 15:21 → 4EAST 12-03 16:28 → ENRESERV 12-07 09:32 → 2EAST 12-07 11:46
PROVIDERS: Emergency Medicine; Hospitalist; Internal Medicine; Nurse Practitioner Adult Health; Urology
PROC: 0T9130Z Drainage of Left Kidney with Drainage Device, Percutaneous Approach (ICD-10-PCS; 2016-11-22)
PROC: 0TT10ZZ Resection of Left Kidney, Open Approach (ICD-10-PCS; principal; 2016-12-03)
PROC: 3E0R3CZ (ICD-10-PCS; principal; 2016-12-03)
PROC: 0GT20ZZ Resection of Left Adrenal Gland, Open Approach (ICD-10-PCS; principal; 2016-12-03)
PROC: 0WBH0ZZ Excision of Retroperitoneum, Open Approach (ICD-10-PCS; principal; 2016-12-03)
PROC: 00HU33Z Insertion of Infusion Device into Spinal Canal, Percutaneous Approach (ICD-10-PCS; principal; 2016-12-03)
PROC: 30233N1 Transfusion of Nonautologous Red Blood Cells into Peripheral Vein, Percutaneous Approach (ICD-10-PCS; 2016-12-06)
DX: A40.8 Other streptococcal sepsis (principal); N15.1 Renal and perinephric abscess; K68.19 Other retroperitoneal abscess; N00.8 Acute nephritic syndrome with other morphologic changes; N11.8 Other chronic tubulo-interstitial nephritis; N20.0 Calculus of kidney; J91.8 Pleural effusion in other conditions classified elsewhere; J18.9 Pneumonia, unspecified organism; M60.9 Myositis, unspecified; E66.01 Morbid (severe) obesity due to excess calories; Z68.42 Body mass index [BMI] 45.0-49.9, adult; E11.65 Type 2 diabetes mellitus with hyperglycemia; E87.1 Hypo-osmolality and hyponatremia; E87.6 Hypokalemia; D64.9 Anemia, unspecified; D75.89 Other specified diseases of blood and blood-forming organs; G89.18 Other acute postprocedural pain; I51.7 Cardiomegaly; Z82.49 Family history of ischemic heart disease and other diseases of the circulatory system; Z80.1 Family history of malignant neoplasm of trachea, bronchus and lung
CPT/HCPCS: 49405; 71010; 71275; 74000; 74177; 76000; 80048; 80048 91; 80053; 80202; 81003; 82436; 82607; 82728; 82948; 83036; 83540; 83605; 83930; 84133; 84300; 84443; 84466; 84484; 85025; 85027; 85610; 85730; 86850; 86900; 86901; 86920; 87040; 87070; 87075; 87076; 87086; 87185; 87205; 87801; 88307; 93005; 94640; 94799; 99202; 99281; 99285; C1758; C1769; C1876; C9113; J0131; J0295; J0330; J0692; J0696; J1100; J1170; J1644; J1815; J2250; J2270; J2405; J2543; J2550; J2710; J2765; J3010; J3370; J7030; J7040; J7050; P9016; S0020

== ENCOUNTER 2017-05-23 11:59 | Emergency (ER) | payer BC ==
[~2017-05-23] VITALS: Ht 167.6 cm; Wt 135.0 kg
[~2017-05-23 11:59] MED LIST changes: +AUGMENTIN875 MG PO; +CIPRO500 MG PO
[2017-05-23 13:15] LABS: APPEARANCE CLOUDY ((CLEAR)); BILIRUBIN NEGATIVE; BLOOD LARGE; COLOR AMBER ((YELLOW)); GLUCOSE (STRIP) NEGATIVE; KETONES NEGATIVE; LEUKOCYTES TRACE; NITRITE NEGATIVE; PROTEIN (STRIP) 100; SPECIFIC GRAVITY 1.024 (1.000-1.030); UROBILINOGEN 0.2 MG/DL (0.2-1.0)
[2017-05-23 13:28] LABS: RED BLOOD CELLS TNTC /HPF (0-5); UCUL ADDED? YES
[2017-05-23 13:34] LABS: BASOPHIL (%) 0.4 % (0-1); EOSINOPHIL (%) 1.2 % (0-5); EOSINOPHIL COUNT 0.1 K/uL (0-0.3); HEMATOCRIT 39.6 % (36.0-46.0); HEMOGLOBIN 13.2 G/DL (11.9-15.5); IMMATURE GRANULOCYTE (%) 0.4 % (0.0-0.7); LYMPHOCYTE (%) 19.4 % (15-42); MCH 27.2 PG (29.0-34.0); MCHC 33.3 G/DL (30.0-36.0); MCV 81.5 FL (83-99); MONOCYTE (%) 5.5 % (3-12); MONOCYTE COUNT 0.6 K/uL (0-0.8); NEUTROPHIL (%) 73.1 % (45-76); NEUTROPHIL COUNT 7.5 K/uL (1.8-6.4); PLATELET COUNT 347 K/uL (156-360); RBC DIS.WIDTH-CV 14.1 % (11.8-14.6); RBC DIS.WIDTH-SD 41.4 % (39-53); RED BLOOD COUNT 4.86 M/uL (3.80-5.20); WHITE BLOOD COUNT 10.3 K/uL (4.1-10.2)
[2017-05-23 13:40] LABS: CHLORIDE 105 mEq/L (99-109); POTASSIUM 3.8 mEq/L (3.7-5.4); SODIUM 138 mEq/L (136-147)
[2017-05-23 13:42] LABS: GLUCOSE 140 mg/dL (70-99)
[2017-05-23 13:46] LABS: CREATININE 1.1 mg/dL (0.6-1.3); GFR ESTIMATE (CALCULATED) 58 mL/min/
[2017-05-23 13:47] LABS: UREA NITROGEN (BUN) 15 mg/dL (9-23)
[2017-05-23] MEDS ORDERED: CIPRO500 MG PO (15:12)
[2017-05-23 15:25] VITALS: BP 143/88
== END 2017-05-23 15:25 | disposition home or self-care (01) ==
LOC: EME 11:59
PROVIDERS: Emergency Medicine
DX: N20.0 Calculus of kidney (principal); Z98.890 Other specified postprocedural states; Z87.442 Personal history of urinary calculi; Z90.5 Acquired absence of kidney
CPT/HCPCS: 74176; 80048; 81003; 85025; 87086; 99281; 99284; J2270; J2405; J7030

== ENCOUNTER 2017-06-11 09:37 | Day surgery (SDC) | payer BC ==
[~2017-06-11] VITALS: Ht 167.6 cm; Wt 133.8 kg
[2017-06-11 10:21] VITALS: BP 155/84
[2017-06-11 13:46] VITALS: BP 139/82
[2017-06-11 14:40] VITALS: BP 135/79
== END 2017-06-11 15:02 | disposition home or self-care (01) ==
LOC: SDC 09:37
PROVIDERS: Urology
DX: N20.0 Calculus of kidney (principal); Z90.5 Acquired absence of kidney; Z87.440 Personal history of urinary (tract) infections; Z87.442 Personal history of urinary calculi; Z82.49 Family history of ischemic heart disease and other diseases of the circulatory system; Z88.6 Allergy status to analgesic agent
CPT/HCPCS: 74420; 82365 90; C1894; C2625; J0131; J0330; J0696; J1885; J2250; J2405; Q0175

== ENCOUNTER 2017-10-12 19:06 | Emergency (ER) | payer BC ==
[~2017-10-12] VITALS: Ht 167.6 cm; Wt 119.6 kg
[2017-10-12] MEDS ORDERED: MEDROL DOSEPAK4 MG PO (20:58)
[2017-10-12 21:08] VITALS: BP 132/92
== END 2017-10-12 21:08 | disposition home or self-care (01) ==
LOC: EME 19:06
DX: L25.9 Unspecified contact dermatitis, unspecified cause (principal); Z88.6 Allergy status to analgesic agent; Z90.5 Acquired absence of kidney
CPT/HCPCS: 99281; 99284; J7512